=== PATIENT | male | born 1965 | race Caucasian/White ===

== ENCOUNTER 2016-04-16 22:14 | Emergency (ER) | payer OTHER ==
[~2016-04-16] VITALS: Ht 180.3 cm; Wt 71.4 kg
[2016-04-16 22:34] VITALS: BP 119/74; PULSE 67; RESP 16; TEMP 98.1; O2SAT 100
[2016-04-16] MEDS ORDERED: ALLO100T PO (22:39)
[2016-04-16] MEDS ORDERED: COLC1CAP3 PO (22:39)
[2016-04-16] MEDS ORDERED: TRAM50TA PO (22:47)
[2016-04-16] MEDS ORDERED: CEPH-460 PO (22:49)
--- NOTE | 2016-04-16 22:49 | PD ---
HPI Chief Complaint: Laceration/Skin Injury Time Seen by Provider: 10:30 (Ana M Jones) Time Seen by Provider: 22:45 (Lizbeth Joseph MD) Travel History International Travel<30 days: No Contact w/Intl Traveler<30days: No Traveled to known affect area: No (Ana M Jones) History of Present Illness HPI Patient is a 50-year-old male who presented to emergency for evaluation of a laceration to his right second finger that he sustained just prior to arrival with a kitchen knife that he was washing in the sink. Patient is up-to-date with his tetanus vaccination. He reports the pain is a 3/10. He denies any numbness or tingling in his finger, or loss of function. (Ana M Jones) [facility] Past Medical History Gout: Yes Tetanus Vaccination: < 5 Years Influenza Vaccination: No (Ana M Jones) Social History Alcohol Use: Yes (Socially) Tobacco Use: No Substance Use: No (Ana M Jones) Allergies-Medications (Allergen,Severity, Reaction): Coded Allergies: No Known Allergies (Unverified , 04/16/16) Reported Meds & Prescriptions Reported Meds & Active Scripts Active Keflex (Cephalexin) 500 Mg Cap 500 Mg PO Q12H 5 Days Tramadol (Tramadol HCl) 50 Mg Tab 50 Mg PO Q6H PRN Reported Colchicine 0.6 Mg Cap 0.6 Mg PO DAILY PRN Allopurinol 100 Mg Tab 150 Mg PO DAILY (Lizbeth Joseph MD) Review of Systems Except as stated in HPI: all other systems reviewed are Neg Musculoskeletal: Positive: Myalgias Skin: Positive Other (laceration to right second finger) (Ana M Jones) Physical Exam Narrative GENERAL: Well-nourished, well-developed patient. SKIN: Warm and dry. 1 cm superficial laceration to the right second finger on the lateral aspect. HEAD: Normocephalic. EYES: No scleral icterus. No injection or drainage. NECK: Supple, trachea midline. No JVD or lymphadenopathy. CARDIOVASCULAR: Regular rate and rhythm without murmurs, gallops, or rubs. Positive radial pulse, brisk was the second capillary refill. RESPIRATORY: Breath sounds equal bilaterally. No accessory muscle use. GASTROINTESTINAL: Abdomen soft, non-tender, nondistended. MUSCULOSKELETAL: No cyanosis, or edema. Full range of motion in right hand and second finger. BACK: Nontender without obvious deformity. No CVA tenderness. (Ana M Jones) [facility] Medical Decision Making Medical Screen Exam Complete: Yes Emergency Medical Condition: Yes Interpretation(s) Vital Signs Date Time Temp Pulse Resp B/P Pulse Ox O2 Delivery O2 Flow Rate FiO2 04/16/16 22:34 98.1 67 16 119/74 100 Differential Diagnosis Laceration versus abrasion versus tendon injury versus other Narrative Course Patient is a 50-year-old male who presented to the emergency department for evaluation of a laceration to his right second finger that he sustained at home while washing the dishes. Patient is up-to-date with his tetanus vaccine. Please see procedure for laceration repair. Patient tolerated well. A finger splint was applied, patient was given verbal wound care instructions. He was advised that he will need to return to emergency department or follow-up with his primary doctor to have stitches removed in 10 days. He was educated on signs and symptoms of infection as well. Patient verbalized understanding of these instructions. Patient is stable for discharge. (Ana M Jones) Procedures Procedure Narrative LACERATION LOCATION: [Right second finger on the lateral aspect] LENGTH: 1 cm NUMBER OF STITCHES/RAD: 3 stitches REPAIR: The area of the laceration was prepped with Betadine and sterilely draped. The laceration was infiltrated with 1% lidocaine. The wound was copiously irrigated and explored without evidence of foreign body, tendon injury or neurovascular injury. The wound was closed using 4-0 Prolene. This was a 1 layer repair. A sterile dressing was applied. The patient was advised to keep the dressing clean and dry. Patient tolerated the procedure well. ( Ana M Jones) Diagnosis Primary Impression: Laceration of finger Qualified Code: S61.219A - Laceration of finger, initial encounter Referrals: Primary Care Physician Patient Instructions: Care For Your Stitches (ED), Finger Laceration (ED), General Instructions, Stitches Removal (DC) Additional Instructions: Do not submerge finger in water until wound is healed and stitches are removed Wash hands with soap and water, apply topical antibiotic ointment and nonocclusive dressing Take medications as directed Do not drive or operate heavy machinery when taking narcotic pain medication Return to emergency department immediately for any new or worsening symptoms Stitches will need to be removed in 10-14 days. Med/Other Pt SpecificInfo: Prescription(s) given (Ana M Jones) Scripts Cephalexin (Keflex)500 Mg Tgh376 Mg PO Q12H 5 Days Ref 0 Prov:Ana M Jones 04/16/16 Tramadol 50 Mg Tab50 Mg PO Q6H PRN (PAIN) #10 TAB Ref 0 Prov:Lizbeth Joseph MD 04/16/16 Disposition: DISCHARGE HOME Condition: Stable Ana M Jones Apr 16, 2016 22:49 Lizbeth Joseph MD Apr 21, 2016 09:44 Cephalexin (Keflex)500 Mg Obi004 Mg PO Q12H 5 Days Ref 0 Prov:Ana M Jones 04/16/16 Tramadol 50 Mg Tab50 Mg PO Q6H PRN (PAIN) #10 TAB Ref 0 Prov:Lizbeth Joseph MD 04/16/16 Disposition: DISCHARGE HOME Condition: Stable Ana M Jones Apr 16, 2016 22:49
== END 2016-04-16 22:55 | disposition home or self-care (01) ==
LOC: PHEFT 22:14
DX: S61.210A Laceration without foreign body of right index finger without damage to nail, initial encounter (principal); W26.0XXA Contact with knife, initial encounter; Y93.G1 Activity, food preparation and clean up; Y92.000 Kitchen of unspecified non-institutional (private) residence as the place of occurrence of the external cause
CPT/HCPCS: 12001

== ENCOUNTER → 2016-06-10 | Day surgery (SDC) | payer OTHER ==
[~2016-06-10] MED LIST: ALLO100T PO; BUPIVACAINE HCL PF 0.25% 30 ML VIAL ONE; CEPH-460 PO; COLC1CAP3 PO; LACTATED RINGER'S 1000 ML INJ 1,000 ML ONE; MIDAZOLAM HCL 5 MG/ML VIAL (1 ML) ONE; ONDANSETRON HCL 4 MG/2 ML VIAL IV PUSH ONE; PROPOFOL 500 MG/50 ML BTL IV ONE; TRAM50TA PO; ceFAZolin 2 GM PREMIX 50 ML ONE
--- NOTE | 2016-06-15 10:26 | MP ---
cc: JACQUELYN LYNN DPM DATE OF SURGERY: 06/10/2016 PREOPERATIVE DIAGNOSIS Right foot hallux abductovalgus with osteoarthritis. POSTOPERATIVE DIAGNOSIS Right foot hallux abductovalgus with osteoarthritis. 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 PROCEDURE PERFORMED Right first metatarsal osteotomy with proximal phalanx osteotomy. SPECIMEN Capsular tissue of right first MPJ as well as bone of first MPJ. COMPLICATIONS None. ANESTHESIA General with popliteal and saphenous blocks. DRAINS None. TOURNIQUET TIME 58 minutes at a setting of 215 mmHg. PLAN OF ACTIVITY PACU then D/C home once stable per same-day surgery criteria. JUSTIFICATION FOR PROCEDURE A 51-year-old male with increasing pain of the right foot. MRI verified osteoarthritis moderate; however, no signs of cystic changes or osteochondral lesions. We devised a plan to move forward with correction of bunion. No guarantees given or implied regarding the outcome. PROCEDURE IN DETAIL Under mild sedation the patient is brought to the operating room, placed on the operating table in supine position. Following the induction of general anesthesia, the right lower extremity was scrubbed, prepped and draped in the usual aseptic fashion. Of note, the patient received popliteal and saphenous block prior to entering the operative suite. Now the right foot was examined elevated, exsanguinated and the previously placed mid-calf tourniquet was inflated to 215 mmHg. An incision was made over the dorsal aspect of the PIPJ which was straight over the level of the first MPJ at the mid-diaphyseal portion of the first metatarsal. This was medial to the extensor hallucis longus tendon. Sharp and blunt dissection was carried down to capsular tissue. The extensor hallucis longus was retracted medially and sharp and blunt dissection was carried down to the level of the first interspace. The level the conjoined tendon was identified and utilizing a 15 blade a lateral capsulotomy was performed freeing up lateral adhesions. Next an L-shaped medial capsulotomy was performed and McGlamry elevator was introduced deep into the joint freeing up plantar adhesions. There was noted to be osteoarthritic changes at the medial aspect of the plantar first metatarsal head without any loose friable cartilaginous tissue. Subchondral drilling took place of this approximately 4-mm x 5-mm plantar surface. All-in-all, the first MPJ appeared to have a majority of its cartilage intact. Of note, there was a white chalky substance that appeared to be adhered to the inner lining of the first MPJ capsule. This was sharply excised and sent for pathological analysis. Next the dorsal medial eminence was transected utilizing power instrumentation and this was also sent for pathological analysis. An offset V-osteotomy was performed of the first metatarsal and the capital fragment was transposed laterally 4-mm and fixated utilizing proper AO technique x 1 screw from dorsal distal to plantar proximal. Bicortical purchase was noted. There was noted to be compression across the osteotomy site utilizing a 3[employer]0 [employer] cannulated screw. There was noted to be a distal deformity at this point but still remained hallux abductovalgus. Sharp and blunt dissection was carried down to the level of the proximal phalanx. Next a [place] osteotomy was performed with the apex being lateral and the opening of the triangle being medial. This was then performed, further rotating the hallux out of a valgus position into a rectus position. This was then fixated utilizing a screw perpendicular to the osteotomy from the base of the proximal phalanx anchoring in the lateral distal cortex of the proximal phalanx. This was a headless 3.[employer] cannulated screw. The wound was flushed with copious amounts of normal saline. Clinical alignment was excellent. The capsular layer was closed utilizing Vicryl. The skin was closed utilizing nylon. Upon relieving the tourniquet there was a prompt hyperemic response to all digits without any delayed capillary fill time. A bulky bandage was placed. The patient was positioned within a controlled ankle motion boot. He is transferred from OR to PACU with all vital signs stable. DISCHARGE INSTRUCTIONS He is partial heel weight-bear to tolerance. FOLLOWUP We will see the patient in 3-5 days. RONNIE Marte /4:43 PM /10:15 AM
== END | disposition home or self-care (01) ==
LOC: ESDC 12:22
PROVIDERS: ATTEND Podiatrist Foot & Ankle Surgery
DX: M20.11 Hallux valgus (acquired), right foot (principal); M19.071 Primary osteoarthritis, right ankle and foot; M1A.9XX1 Chronic gout, unspecified, with tophus (tophi)
CPT/HCPCS: 01480; 28299; 73630; 76000; 88304; 88311; C1713; J0690; J2250; J2405; J7120

== ENCOUNTER → 2016-12-07 | Day surgery (SDC) | payer OTHER ==
[~2016-12-07] MED LIST changes: +KETOROLAC TROMETHAMINE 30 MG/ML (IVP) VIAL IV PUSH ONE; +MIDAZOLAM HCL 2 MG/2 ML VIAL ONE; -MIDAZOLAM HCL 5 MG/ML VIAL (1 ML) ONE; +PROPOFOL 200 MG/20 ML AMP IV ONE; -PROPOFOL 500 MG/50 ML BTL IV ONE
--- NOTE | 2016-12-07 16:30 | MP ---
cc: JACQUELYN LYNN. DPM DATE OF SURGERY 12/07/2016 PREOPERATIVE DIAGNOSIS Left hallux abductovalgus with bunion. POSTOPERATIVE DIAGNOSIS 1. Left hallux abductovalgus with bunion. 2. Gouty tophi. PROCEDURE 1. Left first metatarsal osteotomy 2. Capsular debridement, removal of gouty tophi SPECIMEN Suspected gout within the soft tissue joint capsule. ESTIMATED BLOOD LOSS Less than 10 ml COMPLICATIONS None ANESTHESIA General with local DRAINS None. TOURNIQUET TIME 40 minutes at a setting of 215 mmHg about the patient's mid calf. PLAN OF ACTIVITY PACU then DC home once stable per same-day surgery criteria. JUSTIFICATION FOR PROCEDURE This is a pleasant 51-year-old male who has had worsening bunion and gout type pain. We devised a plan to move forward with surgical intervention. He had surgical intervention on his right foot previously in the year and he is very happy. No guarantees were given or implied regarding the outcome. PROCEDURE IN DETAIL Under mild sedation the patient was brought to the operating room, placed on the operative table in the supine position. Following the induction of general anesthesia, local anesthesia was obtained about the forefoot utilizing standard block fashion. The patient's left foot was then scrubbed, prepped and draped in the usual aseptic fashion. The foot was elevated, exsanguinated and the previously placed midcalf tourniquet inflated to 215 mmHg. A linear incision was made over the dorsal aspect of the first MPJ that was just medial to the extensor hallucis longus tendon. Sharp and blunt dissection was carried down to the joint capsule. Sharp and blunt dissection was carried down to the first MPJ laterally utilizing a 15 blade at the level of the lateral collateral ligament and the conjoined tendon fibular suspensory ligament was then severed utilizing an L-shaped capsulotomy. Next attention was then directed medially. An L-shaped capsulotomy was performed medially. Immediately upon incising the left first MPJ joint capsule there is noted to be copious amounts of gouty tophi type substance. This was then debrided utilizing a combination of rongeur and sharp dissection. The dorsomedial eminence was then transected at the first metatarsal being careful to maintain a sagittal groove. Overall there appeared to be intact first MPJ cartilage without any signs of OCD or significant erosion of the hyaline cartilage. Next an offset V osteotomy was performed of the first metatarsal. The capital fragment was transposed laterally 5 mm then fixated utilizing proper AO technique x2 screws, one distal being a 3.0 screw and one proximal being a 2.5 screw. This was dorsal to plantar compressing the arthrodesis site. The prominent redundant shelf more proximally was then transected. There was smooth contour correction of the bunion with minimal hallux abductovalgus. The wound was flushed with copious amounts of normal saline. Capsule was then repaired utilizing Vicryl. Skin was closed utilizing a combination of Monocryl and nylon. Upon relieving the tourniquet there is a prompt hyperemic response to all digits without any delayed capillary fill time. The patient was transferred OR to PACU with all vital signs stable. He is heel transfer weight bear only. He will ice, elevate. I will see the patient within 3-5 days. RONNIE Marte/FLOR /2:10 PM /4:09 PM
== END | disposition home or self-care (01) ==
LOC: ESDC 11:34
PROVIDERS: ATTEND Podiatrist Foot & Ankle Surgery
DX: M20.12 Hallux valgus (acquired), left foot (principal); M21.612 Bunion of left foot; M1A.9XX1 Chronic gout, unspecified, with tophus (tophi)
CPT/HCPCS: 01480; 28022; 28296; 73620; 76000; 88305; 88311; C1713; J0690; J1885; J2250; J2405; J3010; J7120

== ENCOUNTER 2017-09-06 11:17 | Inpatient (IN) | payer OTHER ==
[~2017-09-06] VITALS: Ht 180.3 cm; Wt 74.6 kg
[~2017-09-06 11:17] MED LIST changes: +ADDE10XR PO; -ALLO100T PO; -BUPIVACAINE HCL PF 0.25% 30 ML VIAL ONE; -CEPH-460 PO; +CLON.5 PO; -COLC1CAP3 PO; -KETOROLAC TROMETHAMINE 30 MG/ML (IVP) VIAL IV PUSH ONE; -LACTATED RINGER'S 1000 ML INJ 1,000 ML ONE; -MIDAZOLAM HCL 2 MG/2 ML VIAL ONE; -ONDANSETRON HCL 4 MG/2 ML VIAL IV PUSH ONE; -PROPOFOL 200 MG/20 ML AMP IV ONE; -TRAM50TA PO; +ZOLO25TA PO; +[UNRECOGNIZED DRUG - CODE] IV; -ceFAZolin 2 GM PREMIX 50 ML ONE
[2017-09-06] MEDS ORDERED: LORazepam 2 MG/ML VIAL IM PRN ×2 (13:45)
[2017-09-06] MEDS ORDERED: LORazepam 2 MG TAB PO PRN (13:45)
[2017-09-06] MEDS ORDERED: ACETAMINOPHEN 325 MG TAB PO PRN (13:45)
[2017-09-06] MEDS ORDERED: LORazepam 1 MG TAB PO PRN ×2 (13:45)
[2017-09-06] MEDS ORDERED: LORazepam 2 MG/ML VIAL IV PUSH PRN ×4 (13:45)
[2017-09-06] MEDS ORDERED: ALUMINUM/MAGNESIUM/SIMETH 30 ML CUP PO PRN (13:45)
[2017-09-06] MEDS ORDERED: MAGNESIUM HYDROXIDE SUSP 30 ML CUP PO PRN (13:45)
[2017-09-06] MEDS ORDERED: FLUMAZENIL 0.5 MG/5 ML VIAL IV PUSH PRN (13:45)
[2017-09-06] MEDS ORDERED: LORazepam 0.5 MG TAB PO PRN (13:45)
[2017-09-06 14:00] VITALS: BP 116/66; PULSE 91; RESP 18; TEMP 97.3; O2SAT 100
[2017-09-06] MEDS: NICOTINE 21 MG/24 HR PATCH T-DERMAL SCH (14:00)
[2017-09-06] MEDS: clonazePAM 0.5 MG TAB PO SCH ×2 (15:10→21:31)
[2017-09-06] MEDS: risperiDONE 1 MG TAB PO SCH ×2 (15:10→21:31)
[2017-09-06] MEDS: NS + KCL 20 MEQ INJ 1,000 ML IV SCH (15:30)
[2017-09-06 18:26] VITALS: BP 116/66; PULSE 91; RESP 18; TEMP 97.3; O2SAT 100
[2017-09-07] MEDS: NS + KCL 20 MEQ INJ 1,000 ML IV SCH ×2 (02:00→11:30)
[2017-09-07 04:45] VITALS: BP 118/60; PULSE 79; RESP 16; TEMP 97.6; O2SAT 97
[2017-09-07] MEDS: clonazePAM 0.5 MG TAB PO SCH ×3 (06:00→20:44)
[2017-09-07] MEDS: THIAMINE HCL 100 MG TAB PO SCH (08:33)
[2017-09-07] MEDS: FOLIC ACID 1 MG TAB PO SCH (08:34)
[2017-09-07] MEDS: risperiDONE 1 MG TAB PO SCH ×2 (08:34→20:44)
[2017-09-07] MEDS: MULTIVITAMINS/MINERALS THERAPEUTIC TAB PO SCH (08:34)
--- NOTE | 2017-09-07 08:56 | HHI.PR ---
Subjective Remarks in shower. no complaints. Objective Vitals heart reg lung cta abd s/nt ext no edema Vital Signs Date Time Temp Pulse Resp B/P (MAP) Pulse Ox O2 Delivery O2 Flow Rate FiO2 09/07/17 04:45 97.6 79 16 118/60 (79) 97 09/06/17 18:26 97.3 91 18 116/66 (83) 100 09/06/17 14:00 97.3 91 18 116/66 (83) 100 09/07/17 09/07/17 09/08/17 15:00 23:00 07:00 Intake Total 0 ml Balance 0 ml Intake Oral 0 ml A/P Problem List: (1) SHERRY (acute kidney injury) ICD Codes: N17.9 - Acute kidney failure, unspecified Status: Acute Plan: 1. Pt presented with sherry felt related to a paleo diet. His cr was 9 and after hydration yesterday was 4. transferred to med/psych unit for psychosis. cont ivf and labs for today are still pending. William Soto MD Sep 07, 2017 08:56
[2017-09-07] MEDS: NICOTINE 21 MG/24 HR PATCH T-DERMAL SCH (09:00)
[2017-09-07 11:39] LABS: BICARBONATE 25.3 MEQ/L (21.0-32.0); BLOOD UREA NITROGEN 21 MG/DL (7-18); CALCIUM 8.7 MG/DL (8.5-10.1); CHLORIDE 109 MEQ/L (98-107); CHOLESTEROL 172 MG/DL (120-200); CHOLESTEROL/ HDL RATIO 3.69 RATIO; CREATININE 1.06 MG/DL (0.60-1.30); GLOMERULAR FILTRATION RATE 73 ML/MIN (>89); GLUCOSE,RANDOM 88 MG/DL (74-106); HDL CHOLESTEROL 46.6 MG/DL (40.0-60.0); LDL CHOLESTEROL 96 MG/DL (0-99); SODIUM (NA) 141 MEQ/L (136-145); TRIGLYCERIDES 149 MG/DL (42-150)
[2017-09-07 14:56] LABS: HEMOGLOBIN A1C 4.7 % (4.3-6.0)
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
[2017-09-07 18:44] VITALS: BP 135/80; PULSE 80; RESP 16; TEMP 97.7; O2SAT 96
[2017-09-08] MEDS: clonazePAM 0.5 MG TAB PO SCH ×2 (05:59→14:34)
[2017-09-08 06:00] VITALS: BP 114/71; PULSE 88; RESP 17; TEMP 98; O2SAT 94
--- NOTE | 2017-09-08 08:11 | HHI.PR ---
Subjective Remarks feels better no physical complaints Objective Vitals heart reg lung cta abd s/nt ext no edema Vital Signs Date Time Temp Pulse Resp B/P (MAP) Pulse Ox O2 Delivery O2 Flow Rate FiO2 09/08/17 06:00 98.0 88 17 114/71 (85) 94 09/07/17 18:44 97.7 80 16 135/80 (98) 96 Result Diagram: 09/07/17 1040 A/P Problem List: (1) SHERRY (acute kidney injury) ICD Codes: N17.9 - Acute kidney failure, unspecified Status: Acute Plan: 1. Pt presented with sherry felt related to a paleo diet. His cr was 9 and after hydration yesterday was 4. transferred to med/psych unit for psychosis. renal function back to nml stop ivf ok to dc from medical standpt. will see prn. William Soto MD Sep 08, 2017 08:11
[2017-09-08] MEDS: NICOTINE 21 MG/24 HR PATCH T-DERMAL SCH (09:00)
[2017-09-08] MEDS: MULTIVITAMINS/MINERALS THERAPEUTIC TAB PO SCH (09:00)
[2017-09-08] MEDS: risperiDONE 1 MG TAB PO SCH (10:01)
[2017-09-08] MEDS: THIAMINE HCL 100 MG TAB PO SCH (10:01)
[2017-09-08] MEDS: FOLIC ACID 1 MG TAB PO SCH (10:01)
[2017-09-08] MEDS ORDERED: CLON.5 PO (12:28)
[2017-09-08] MEDS ORDERED: FOLI1TAB6 PO (12:28)
[2017-09-08] MEDS ORDERED: RISP1 PO (12:28)
[2017-09-08] MEDS ORDERED: THIA100 PO (12:28)
[2017-09-08] MEDS ORDERED: THERM PO (12:28)
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
== END 2017-09-08 18:17 | disposition home or self-care (01) | DRG 885 ==
LOC: H4EA 12:00
PROVIDERS: ADMIT Student in an Organized Health Care Education/Training Program; ATTEND Student in an Organized Health Care Education/Training Program
DX: F29 Unspecified psychosis not due to a substance or known physiological condition (principal); N17.9 Acute kidney failure, unspecified; I10 Essential (primary) hypertension; E78.5 Hyperlipidemia, unspecified; M10.9 Gout, unspecified; F32.9 Major depressive disorder, single episode, unspecified; Z79.899 Other long term (current) drug therapy
CPT/HCPCS: 80048; 80061; 83036; J3480